=== PATIENT | female | born 1950 ===

== ENCOUNTER 2022-08-18 06:55 | Day surgery (SDC) | payer OTHER | END 2022-08-18 13:15 | disposition home or self-care (01) | LOC: AMB-ENDOS 06:55 → CIR.AMB 14:00 | PROVIDERS: ATTEND Surgery | DX: K57.30 Diverticulosis of large intestine without perforation or abscess without bleeding (principal); R10.84 Generalized abdominal pain; R19.4 Change in bowel habit; K64.8 Other hemorrhoids; Z20.822 Contact with and (suspected) exposure to COVID-19 ==

== ENCOUNTER 2022-10-24 09:00 | Inpatient (IN) | payer OTHER ==
[~2022-10-24] VITALS: Ht 157.5 cm; Wt 83.5 kg
[2022-10-24] MEDS ORDERED: GLUMETZA500 MG PO (13:24)
[2022-10-24] MEDS ORDERED: ATORVASTATIN CA40 MG PO (13:25)
[2022-10-24] MEDS ORDERED: [UNRECOGNIZED DRUG - OTHER] (13:25)
[2022-10-24] MEDS ORDERED: IRBESARTAN-HCT1 EACH PO (13:25)
[2022-10-24] MEDS ORDERED: ISORBIDE PO (13:26)
[2022-10-24] MEDS ORDERED: GABAPENTIN300 MG PO (13:27)
[2022-10-24] MEDS ORDERED: ACID CONTROLLER20 MG PO (13:28)
[2022-10-24] MEDS ORDERED: CLONAZEPAM2 MG PO (13:28)
[2022-10-24] MEDS ORDERED: LINZESS72 MCG PO (13:29)
[2022-10-28] MEDS ORDERED: D3-200050 MCG (13:06)
[2022-10-28] MEDS ORDERED: PEPTO-BISM262 MG/15 (13:06)
[2022-10-28] MEDS ORDERED: LORAZEPAM0.5 MG (13:06)
[2022-10-28] MEDS ORDERED: ISOSORBIDE MONO30 M2 (13:06)
[2022-10-28] MEDS ORDERED: NIFEDIPINE ER60 MG (13:06)
[2022-10-28] MEDS ORDERED: GAS-X125 MG (13:06)
[2022-10-28] MEDS ORDERED: PANTOPRAZOLE SO40 MG (13:06)
[2022-10-28] MEDS ORDERED: VOLTAREN ARTHRI20 GM (13:06)
[2022-10-28] MEDS ORDERED: APRESOLINE 10MG10 MG (13:07)
[2022-11-03] MEDS ORDERED: HYOSCYAMINE0.125 M1 SL (13:19)
== END 2022-11-03 16:57 | disposition home or self-care (01) | DRG 330 ==
LOC: SURH 10-27 09:00 → O/R 10-28 05:14 → SURG 10-28 05:14 → SURH 10-30 14:24
PROVIDERS: ADMIT Surgery; ATTEND Surgery
PROC: 0DBP4ZZ Excision of Rectum, Percutaneous Endoscopic Approach (ICD-10-PCS; 2022-10-28)
PROC: 0DJD8ZZ Inspection of Lower Intestinal Tract, Via Natural or Artificial Opening Endoscopic (ICD-10-PCS; 2022-10-28)
PROC: 4A12X4Z Monitoring of Cardiac Electrical Activity, External Approach (ICD-10-PCS; 2022-10-28)
PROC: 3E0F7SF Introduction of Other Gas into Respiratory Tract, Via Natural or Artificial Opening (ICD-10-PCS; 2022-10-28)
PROC: 0DTN4ZZ Resection of Sigmoid Colon, Percutaneous Endoscopic Approach (ICD-10-PCS; principal; 2022-10-28 15:00)
PROC: 02HV33Z Insertion of Infusion Device into Superior Vena Cava, Percutaneous Approach (ICD-10-PCS; 2022-11-01)
PROC: 3E0436Z Introduction of Nutritional Substance into Central Vein, Percutaneous Approach (ICD-10-PCS; 2022-11-01)
DX: K57.30 Diverticulosis of large intestine without perforation or abscess without bleeding (principal); K56.0 Paralytic ileus; D64.89 Other specified anemias; R10.9 Unspecified abdominal pain; R19.7 Diarrhea, unspecified; R19.4 Change in bowel habit; E11.9 Type 2 diabetes mellitus without complications; I11.9 Hypertensive heart disease without heart failure; G47.30 Sleep apnea, unspecified; Z79.84 Long term (current) use of oral hypoglycemic drugs

== ENCOUNTER 2023-08-31 05:18 | Day surgery (SDC) | payer OTHER ==
[~2023-08-31 05:18] MED LIST: ACID CONTROLLER20 MG PO; APRESOLINE 10MG10 MG; ATORVASTATIN CA40 MG PO; CLONAZEPAM2 MG PO; D3-200050 MCG; GABAPENTIN300 MG PO; GAS-X125 MG; GLUMETZA500 MG PO; HYOSCYAMINE0.125 M1 SL; IRBESARTAN-HCT1 EACH PO; ISORBIDE PO; ISOSORBIDE MONO30 M2; LINZESS72 MCG PO; LORAZEPAM0.5 MG; NIFEDIPINE ER60 MG; PANTOPRAZOLE SO40 MG; PEPTO-BISM262 MG/15; VOLTAREN ARTHRI20 GM; [UNRECOGNIZED DRUG - OTHER]
[2023-08-31] MEDS ORDERED: METRONIDAZOLE/SODIUM CHLORIDE 500 MG/100 ML PIGGYBACK IV ONE (10:42)
[2023-08-31] MEDS ORDERED: CEFTRIAXONE SODIUM 2,000 MG VIAL ONE (10:42)
[2023-08-31] MEDS ORDERED: DIBUCAINE 30 GM TUBE ONE (10:44)
[2023-08-31] MEDS ORDERED: LIDOCAINE HCL/EPINEPHRINE 10MG/ML 1% 50ML IJ ONE (10:44)
[2023-08-31] MEDS ORDERED: BUPIVACAINE HCL/PF 0.5% 30ML ML ONE (10:44)
[2023-08-31] MEDS ORDERED: POVIDONE-IODINE 118 ML BOTT TOP ONE ×2 (10:45→11:45)
[2023-08-31] MEDS ORDERED: LIDOCAINE HCL 1% 200MG/20ML VIAL IJ ONE ×2 (10:45→11:45)
[2023-08-31] MEDS ORDERED: HEMOSTATIC MATRIX 1 KIT KIT TOP ONE ×2 (11:09→11:45)
[2023-08-31] MEDS ORDERED: METRONIDAZOLE/SODIUM CHLORIDE 500 MG/100 ML PIGGYBACK IV SCH (11:45)
[2023-08-31] MEDS ORDERED: BUPIVACAINE HCL/MPF 0.5% 30ML VIAL IJ ONE (11:45)
[2023-08-31] MEDS ORDERED: CEFTRIAXONE SODIUM 2,000 MG VIAL IV SCH (11:45)
[2023-08-31] MEDS ORDERED: DIBUCAINE 30 GM TUBE RECTAL ONE (11:45)
[2023-08-31] MEDS ORDERED: TAMSULOSIN HCL 0.4 MG CAP PO ONE ×2 (13:15→15:20)
[2023-08-31] MEDS ORDERED: OXYC1TAB9 PO (13:42)
== END 2023-08-31 17:20 | disposition home or self-care (01) ==
LOC: CIR.AMB 05:18
PROVIDERS: ATTEND Surgery
DX: K64.8 Other hemorrhoids (principal); K64.4 Residual hemorrhoidal skin tags; K62.5 Hemorrhage of anus and rectum; K62.89 Other specified diseases of anus and rectum